=== PATIENT | male | born 1960 | race Caucasian/White ===

== ENCOUNTER 2019-09-27 11:27 | Observation (INO) | payer OTHER ==
--- NOTE | 2019-09-27 11:47 | ED ---
Syncope/Near Syncope - HPI Summary HPI Summary: This patient is a 59 y/o male presenting to [facility] for a syncopal episode today. Patient reports he was picking up a prescription at [facility] and upon walking up to the counter he syncopized. He notes the next thing he remembers is waking up on the ground hearing people speak. Patient states he felt lightheaded prior to passing out, but denies feeling chest pain or palpitations prior to syncope. After he woke up it took him a minute to realized he was on the floor. Patient does not know how long he was on the floor for. Patient notes he had head strike and currently has head pain. Denies neck pain. After waking up he denies feeling chest pain, palpitations, SOB. He denies hx of syncope. PMHx: HTN, dyslipidemia. Denies hx of DM, MT, stroke. Patient is not anticoagulated. Patients admits to occasional alcohol use, but denies tobacco and drug use. Home Medications Medication Instructions Recorded Confirmed Type Atorvastatin* [Lipitor*] 20 mg PO QPM 09/27/19 09/27/19 History Diltiazem XR EXTEND Releas(NF) 120 mg PO DAILY 09/27/19 09/27/19 History [Cartia XR (NF)] Multivitamin [Once Daily] 1 each PO DAILY 09/27/19 09/27/19 History [place]-3/Dha/Epa/Fish Oil [Fish Oil 1,000 mg PO DAILY 09/27/19 09/27/19 History 1,000 mg Softgel] Ramipril 10 mg PO QPM 09/27/19 09/27/19 History Ubidecarenone [Coq10] 100 mg PO DAILY 09/27/19 09/27/19 History - History Of Current Complaint Chief Complaint: EDSyncope Time Seen by Provider: 09/27/19 11:36 Hx Obtained From: Patient Onset/Duration: Sudden Onset Context: Witnessed, Loss Of Consciousness Associated Head Trauma: Yes Aggravating Factor(s): Nothing Alleviating Factor(s): Nothing Associated Signs And Symptoms: Lightheadedness, Pain - head - Allergies/Home Medications Allergies/Adverse Reactions: Allergies Allergy/AdvReac Type Severity Reaction Status Date / Time aspirin Allergy Rash Verified 09/27/19 11:33 Home Medications: Home Medications Atorvastatin* [Lipitor*] 20 mg PO QPM 09/27/19 [History Confirmed 09/27/19] Diltiazem XR EXTEND Releas(NF) [Cartia XR (NF)] 120 mg PO DAILY 09/27/19 [ History Confirmed 09/27/19] Multivitamin [Once Daily] 1 each PO DAILY 09/27/19 [History Confirmed 09/27/19] [place]-3/Dha/Epa/Fish Oil [Fish Oil 1,000 mg Softgel] 1,000 mg PO DAILY 09/27/19 [History Confirmed 09/27/19] Ramipril 10 mg PO QPM 09/27/19 [History Confirmed 09/27/19] Ubidecarenone [Coq10] 100 mg PO DAILY 09/27/19 [History Confirmed 09/27/19] PMH/Surg Hx/FS Hx/Imm Hx Endocrine/Hematology History: Denies: Hx Diabetes Cardiovascular History: Reports: Hx Hypercholesterolemia, Hx Hypertension Denies: Hx Myocardial Infarction Infectious Disease History: No Infectious Disease History: Denies: Traveled Outside the [place] in Last 30 Days - Family History Known Family History: Positive: Hypertension - Social History Alcohol Use: Occasionally Substance Use Type: Reports: None Smoking Status (MU): Never Smoked Tobacco Review of Systems Negative: Fever Negative: Palpitations, Chest Pain Negative: Shortness Of Breath Negative: Other - NEGATIVE: neck pain Neurological/Mental Status: Other - POSITIVE: lightheadedness Positive: Headache, Syncope All Other Systems Reviewed And Are Negative: Yes Physical Exam - Summary Physical Exam Summary: VITAL SIGNS: Reviewed. GENERAL: Patient is a well-developed and nourished male who is lying comfortable in the stretcher. Patient is not in any acute respiratory distress. HEAD AND FACE: Bump on the left occipital area. EYES: PERRLA, EOMI x 2, No injected conjunctiva, no nystagmus. EARS: Hearing grossly intact. Ear canals and tympanic membranes are within normal limits. MOUTH: Oropharynx within normal limits. NECK: Supple, trachea is midline, no adenopathy, no JVD, no carotid bruit, no c- spine tenderness, neck with full ROM. CHEST: Symmetric, no tenderness at palpation LUNGS: Clear to auscultation bilaterally. No wheezing or crackles. CVS: Regular rate and rhythm, S1 and S2 present, no murmurs or gallops appreciated. ABDOMEN: Soft, non-tender. No signs of distention. No rebound no guarding, and no masses palpated. Bowel sounds are normal. EXTREMITIES: FROM in all major joints, no edema, no cyanosis or clubbing. NEURO: Alert and oriented x 3. No acute neurological deficits. Speech is normal and follows commands. SKIN: Dry and warm GCS: 15 Triage Information Reviewed: Yes Vital Signs On Initial Exam: Initial Vitals Temp Pulse Resp BP Pulse Ox 98.4 F 77 19 145/96 92 09/27/19 11:28 09/27/19 11:28 09/27/19 11:28 09/27/19 11:28 09/27/19 11:28 Vital Signs Reviewed: Yes Procedures - Sedation Patient Received Moderate/Deep Sedation with Procedure: No Diagnostics - Vital Signs Vital Signs Temp Pulse Resp BP Pulse Ox 09/27/19 11:28 98.4 F 77 19 145/96 92 - Laboratory Result Diagrams: 09/27/19 12:01 09/27/19 12:01 Lab Statement: Any lab studies that have been ordered have been reviewed, and results considered in the medical decision making process. - Radiology Chest XR Radiology Interpretation Completed By: Radiologist Summary of Radiographic Findings: IMPRESSION: No radiographic evidence of acute cardiopulmonary disease. Dr. Jo has reviewed this report. - CT Brain CT CT Interpretation Completed By: Radiologist Summary of CT Findings: IMPRESSION: Normal CT of the brain. Dr. Jo has reviewed this report. - EKG 11:43 Cardiac Rate: NL - at 73 bpm EKG Rhythm: Sinus Rhythm EKG Comparison: Other - no prior for comparison. Summary of EKG Findings: EKG at 11:43 shows sinus rhythm at a rate of [address] elevations. This EKG was reviewed and interpreted by ED physician. Course/Dx Assessment/Plan: This patient is a 59 y/o male presenting to [facility] for a syncopal episode today. Patient reports he was picking up a prescription at [facility] and upon walking up to the counter he syncopized. He notes the next thing he remembers is waking up on the ground hearing people speak. Patient states he felt lightheaded prior to passing out, but denies feeling chest pain or palpitations prior to syncope. After he woke up it took him a minute to realized he was on the floor. Patient does not know how long he was on the floor for. Patient notes he had head strike and currently has head pain. Denies neck pain. After waking up he denies feeling chest pain, palpitations, SOB. He denies hx of syncope. PMHx: HTN, dyslipidemia. Denies hx of DM, MT, stroke. Patient is not anticoagulated. Patients admit to occasional alcohol use, but deny tobacco and drug use. Blood work without a significant abnormality except for creatinine 1.23, glucose 148, magnesium 1.7, total CPK is 232. Serum alcohol is 13. Head CT impression: No acute intracranial pathology. Chest x- ray impression: No acute cardiothoracic pathology. In the ED course the patient remained stable. I discussed my physical exam and test results with Dr. Bustillos from the hospitalist services and he agrees to admit the patient to his services. The patient is hemodynamically stable, alert and oriented x 3. - Diagnoses Differential Diagnosis/HQI/PQRI: Positive: Cerebral Vascular Accident, Coronary Artery Disease, Dysrhythmia, Hypoglycemia, Metabolic Reaction, Myocardial Infarction, Seizure, Transient Ischemic Attack, Vasovagal Episode Provider Diagnoses: Syncope - Physician Notifications Discussed Care of Patient With: Bernardino Terrell - hospitalist Time Discussed With Above Provider: 13:30 Instructed by Provider To: Admit As Inpatient Discharge ED - Sign-Out/Discharge Documenting (check all that apply): Patient Departure - Ad[facility] - Discharge Plan Condition: Stable Disposition: ADMITTED TO [facility] - Billing Disposition and Condition Condition: STABLE Disposition: Admitted to [facility] - Attestation Statements Document Initiated by Kennye: Yes Documenting Scribe: Leonie Calles Provider For Whom Cara is Documenting (Include Credential): Travis Jo MD Scribe Attestation: Leonie Sandoval, scribed for Travis Jo MD on 09/27/19 at 2133. Scribe Documentation Reviewed: Yes Provider Attestation: The documentation as recorded by the Leonie rodriguez accurately reflects the service I personally performed and the decisions made by me, Travis Jo MD Status of Scribe Document: Viewed
[2019-09-27 12:11] LABS: ABS Eosinophils 0.1 10^3/ul (0-0.6); ABS Lymphocytes 1.6 10^3/ul (1.0-4.8); ABS Monocytes 0.5 10^3/ul (0-0.8); ABS Neutrophils 5.8 10^3/ul (1.5-7.7); Eosinophil % 1.3 %; Hematocrit 47 % (42-52); Hemoglobin 16.2 g/dL (14.0-18.0); Lymphocyte % 19.7 %; Mean Corpuscular HGB Conc 35 g/dL (31-36); Mean Corpuscular Hemoglobin 34 pg (27-31); Mean Corpuscular Volume 97 fL (80-94); Mean Platelet Volume 8.3 fL (7.4-10.4); Platelet Count 192 10^3/uL (150-450); Red Blood Count 4.82 10^6 /uL (4.18-5.48); Red Cell Distribution Width 13 % (10-15)
[2019-09-27 12:27] LABS: Albumin 4.2 g/dL (3.2-5.2); Albumin/Globulin Ratio 1.6 (1-3); BUN/Creatinine Ratio 19.5 (8-20); Calcium 9.6 mg/dL (8.6-10.3); EGFR African American 72.4 (>60); EGFR Non-African American 59.8 (>60); Globulin 2.6 g/dL (2-4); Magnesium 1.7 mg/dL (1.9-2.7); Potassium 3.7 mmol/L (3.5-5.0); Total Bilirubin 0.5 mg/dL (0.2-1.0); Total Protein 6.8 g/dL (6.4-8.9)
[2019-09-27 12:29] LABS: Troponin I 0.01 ng/mL (<0.03)
[2019-09-27 13:09] LABS: TSH (Thyroid Stimulating Horm) 1.12 mcIU/mL (0.34-5.60)
[2019-09-27 13:44] LABS: Urine Appearance Clear; Urine Bilirubin Negative (Negative); Urine Blood Negative (Negative); Urine Color Yellow; Urine Glucose Negative (Negative); Urine Ketones Negative (Negative); Urine Nitrite Negative (Negative); Urine Protein Negative (Negative); Urine Specific Gravity 1.012 (1.010-1.030); Urine Urobilinogen Negative (Negative)
[2019-09-27 13:54] LABS: Urine Benzodiazepine Screen None Detected (None Detect); Urine Opiates Screen None Detected (None Detect)
[2019-09-27] MEDS ORDERED: Acetaminophen TAB* 325 MG PO PRN (13:57)
[2019-09-27] MEDS ORDERED: Ondansetron ODT TAB* 4 MG SL PRN (13:57)
[2019-09-27] MEDS ORDERED: Magnesium Sulfate IV* 3 GM in NS 0.9% 100 ML* 100 ML IVPB ONE (15:17)
[2019-09-27] MEDS: Heparin VIAL(*) 5000 UNITS/ML VIAL (FIVE THOUSAND) SUBCUT SCH ×2 (16:31→21:09)
[2019-09-27] MEDS ORDERED: Atorvastatin* 20 MG TAB PO SCH (18:00)
[2019-09-27] MEDS ORDERED: Ramipril CAP* 10 MG PO SCH (18:00)
--- NOTE | 2019-09-27 19:07 | HP ---
CC: Dr. Ellis * [facility] MEDICINE HISTORY AND PHYSICAL: DATE OF ADMISSION: 09/27/19 PRIMARY CARE PHYSICIAN: Dr. Ellis. ATTENDING PHYSICIAN: Bernardino Terrell MD * (dictation provided by Mayra Pastor NP). CHIEF COMPLAINT: Syncope. HISTORY OF PRESENT ILLNESS: Mr. Ma is a 59-year-old male with a past medical history of hypertension and hyperlipidemia who presents to the hospital today after an episode of syncope. Mr. Ma states he has been in his normal state of health with no complaints. He was feeling well yesterday. This morning, he got up, he had breakfast and then went for 1.5-hour hike. 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 The patient states that he did have a very brief prodrome of feeling lightheaded but then the next thing he remembers he found himself on the floor with people standing around him. He has no chest pain. No shortness of breath. No nausea, vomiting, diarrhea, or abdominal pain. At this point, he is feeling quite well. He does not have a known cardiac history, but has a very strong positive family history for cardiac problems. He does have a history of hypertension. He has had no known heart arrhythmias. 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 He has never had an echocardiogram. His EKG today shows a left bundle-branch block. He is not aware of the history of this and cannot recall the last time he had an EKG. In the emergency room, Mr. Ma had labs, which were essentially unremarkable. He had mildly low magnesium and a creatinine of 1.23, no known previous. He has no leukocytosis. He is not anemic. His vital signs are stable. He is not orthostatic by blood pressure criteria. He had a CT of the brain, which showed no abnormality. He had a chest x-ray that showed no abnormality. PAST MEDICAL HISTORY: 1. Hypertension. 2. Hyperlipidemia. 3. Obstructive sleep apnea with CPAP. MEDICATIONS: 1. Multivitamin 1 tab daily. 2. Fish oil tablet 1000 mg p.o. daily. 3. CoQ10 100 mg p.o. daily. 4. Atorvastatin 20 mg p.o. q.p.m. 5. Diltiazem XR 120 mg p.o. daily. 6. Ramipril 10 mg p.o. q.p.m. ALLERGIES: To ASPIRIN. FAMILY HISTORY: The patient reports that his mother had a CABG recently. His father had valvular problems and had a pacemaker and about 3 to 4 years ago. His brother has had 3 stents placed. His maternal uncle had heart troubles , his paternal uncle had heart troubles, and all 4 of his grandparents had heart troubles unspecified. SOCIAL HISTORY: No report of tobacco use and no report of significant alcohol use. The patient lives with his , who is the healthcare proxy. REVIEW OF SYSTEMS: A 14-point review of systems was completed with Mr. Ma and all those not mentioned above were negative. PHYSICAL EXAMINATION GENERAL: Mr. Ma is sitting in the bed with his at the bedside. He is in no acute distress. VITAL SIGNS: Temperature 98.3, pulse rate 74, respiratory rate 13, O2 saturation 94% on room air, and blood pressure 163/94. LUNGS: Clear to auscultation bilaterally with no accessory muscle use and good aeration. HEART: S1, S2. The patient has hint of a systolic murmur at the sternal border but is difficult to auscultate due to the patient's body habitus. ABDOMEN: Soft, nontender with bowel sounds positive x4. EXTREMITIES: No cyanosis or edema. NEURO: He is alert. He is oriented x3. He moves all extremities equally. There is no facial asymmetry or focal weakness. Extraocular movements are intact. SKIN: Intact. DIAGNOSTIC STUDIES/LAB DATA: WBC 8.0, hemoglobin 16.2, hematocrit 47, and platelet count 192. Sodium 137, potassium 2.7, chloride 107, serum bicarbonate 22, BUN 24, creatinine 1.23, glucose 148, lactic acid 1.0, magnesium 1.7. Troponin 0.01. TSH 1.12. Urine shows no evidence of infection. The serum alcohol screen shows alcohol level of 13, and urine is positive for cannabis. CT brain shows no acute abnormality. Chest x-ray shows no abnormality. EKG shows a sinus rhythm with a left bundle-branch block. ASSESSMENT: Mr. Ma is a 59-year-old male with past medical history of hypertension, hyperlipidemia, and obstructive sleep apnea, who presents to the hospital today after syncopal episode. Our plans are for observation in the hospital for the followin. Syncope: Certainly, the greatest concern is for cardiac etiology. The patient has had no evidence of arrhythmia on telemetry. He does have left bundle-branch block, which was unknown to him. His troponin is negative. Our plans will be for continuous telemetry monitoring while in the hospital. He will have a transthoracic echocardiogram and our hope is that he can have that obtained tomorrow. I am particularly interested in the echo given his left bundle-branch block and his apparent murmur on exam today. He certainly has a positive family history for coronary artery disease and structural heart abnormalities and he is at high risk. Given if this workup here while in the hospital is negative, I encourage him strongly to follow up outpatient with Cardiology for continued evaluation. The patient's is concerned that perhaps his syncope was related to hypoglycemia as though he ate breakfast he has been avoiding carbohydrates. I also note that his alcohol screen was slightly positive and that his cannabis screen was positive perhaps this was a contributing factor as well. 2. Hypertension. Plan to continue home medications. 3. Obstructive sleep apnea. Plan to continue CPAP. 4. DVT prophylaxis with heparin subcu. 5. Code status is full code. TIME SPENT: Approximately 60 minutes was spent on the admission of this patient , more than half the time spent with the patient at the bedside reviewing the events leading up to this hospitalization, performing the physical examination, and reviewing my plan of care. MAYRA PASTOR NP [id number]/[facility] #: [id number] BOLIVAR
[2019-09-28] MEDS: Heparin VIAL(*) 5000 UNITS/ML VIAL (FIVE THOUSAND) SUBCUT SCH (05:53)
[2019-09-28 07:58] LABS: BUN/Creatinine Ratio 18.3 (8-20); Calcium 9.4 mg/dL (8.6-10.3); EGFR African American 87.9 (>60); EGFR Non-African American 72.6 (>60); Magnesium 2.1 mg/dL (1.9-2.7); Potassium 4.2 mmol/L (3.5-5.0)
[2019-09-28] MEDS ORDERED: Diltiazem CD CAP* 120 MG PO SCH (09:00)
--- NOTE | 2019-09-28 12:05 | ECHO ---
*[facility]* [place] [address] Fax #: [phone] Transthoracic Echocardiogram Patient: Lukas Ma : 1960 Study Date: 09/28/2019 Age: 59 Gender: M HR: 70 bpm Height: 72 in /182.9 cm BSA: 2.38 m^2 Weight: 259.5 lb /117.9 kg BMI: 35.3 kg/m^2 *[employer] Collection System Operator: Jennifer Collier *Referring Physician: * Mayra PastorReading Physician: * Bobo Cline MD Indications: Syncope. History: Risk factors: Dyslipidemia. Family history is significant for coronary artery disease. Conclusions Summary: - Left ventricle: The cavity size is normal. Wall thickness is mildly increased. Systolic function is normal. The estimated ejection fraction is 55-60%. No clear regional wall motion abnormality identified. Doppler parameters are consistent with abnormal left ventricular relaxation (grade 1 diastolic dysfunction). - Left atrium: The atrium is mildly dilated. - Right atrium: The atrium is mildly dilated. - Functionally benign heart valves. - There is no prior echocardiogram available to compare with at this time. Study data: Transthoracic echocardiogram. Procedure: Transthoracic echocardiography was performed. Image quality was adequate. Complete 2D, spectral Doppler, and color flow Doppler. Location: Bedside. Patient status: Inpatient. Patient room number: 445-01. Rhythm: Normal sinus rhythm. Findings Left ventricle: The cavity size is normal. Wall thickness is mildly increased. Systolic function is normal. The estimated ejection fraction is 55-60%. No clear regional wall motion abnormality identified. Doppler parameters are consistent with abnormal left ventricular relaxation (grade 1 diastolic dysfunction). Right ventricle: The cavity size is normal. Systolic function is normal. Ventricular septum: The ventricular septum is normal. The interventricular septum appears dyssynchronous. Left atrium: The atrium is mildly dilated. Right atrium: The atrium is mildly dilated. Mitral valve: The valve is structurally normal. There is trace regurgitation. Aortic valve: The valve is structurally normal. The valve is trileaflet. Cusp separation is normal. Transvalvular velocity is within the normal range. There is no evidence of stenosis. There is no significant regurgitation. Tricuspid valve: The valve is structurally normal. There is no evidence of stenosis. There is trace regurgitation. Pulmonic valve: The valve is structurally normal. There is no evidence of stenosis. There is no significant regurgitation. Aorta: The aortic root appears normal. The aortic arch appears normal. Pericardium: There is no significant pericardial effusion. Pulmonary arteries: Systolic pressure can not be accurately estimated. Systemic veins: Inferior vena cava: Not well visualized. Pulmonary veins: The Pulmonary veins appear normal. Measurements Left ventricle Value Ref Aortic valve Value Ref JORGE, LAX 5.5 cm 4.2 - 5.8 Peak v, S 1.9 m/sec ---- ESD, LAX (H) 4.1 cm 2.5 - 4.0 VTI, S 30.8 cm ---- FS, LAX 27 % 25 - 43 Mean grad, S 7.0 mm Hg ---- PW, ED, LAX (H) 1.4 cm 0.6 - 1.0 Peak grad, S 14.0 mm Hg ---- E', lat alex, TDI (L) 6.0 cm/sec >=10.0 RADHA, VTI 2.13 cm^2 ---- E/e', lat alex, 13 RADHA, Vmax 1.98 cm^2 ---- TDI Mitral valve Value Ref LVOT Value Ref Peak E 0.8 m/sec ---- Diam, S 2.00 cm Peak A 0.83 m/sec ---- Area 3.1 cm^2 Decel time 166 ms ---- Peak wayne, S 1.2 m/sec Peak grad, D 2.6 mm Hg ---- Peak grad, S 6 mm Hg Peak E/A ratio 1 ---- Mean grad, S 3 mm Hg SV 66 ml Pulmonic valve Value Ref Peak v, S 1.34 m/sec ---- Ventricular septum Value Ref Peak grad, S 7.0 mm Hg ---- IVS, ED (H) 1.3 cm 0.6 - 1.0 Aortic root Value Ref Right ventricle Value Ref Root diam 3.6 cm <4.4 JORGE, LAX 3.5 cm Ascending aorta Value Ref Left atrium Value Ref AAo AP diam, S 3.7 cm ---- AP dim, ES 3.50 cm 3.00 - 4.00 Aortic arch Value Ref ML dim, A4C 5.5 cm Arch diam 2.4 cm ---- SI dim, A4C 5.4 cm Vol/bsa, ES, 1-p (H) 39 ml/m^2 12 - 37 Decending aorta Value Ref A4C Laquita peak wayne 0.93 m/sec ---- Right atrium Value Ref SI dim, ES (H) 5.7 cm 3.4 - 5.3 ML dim, ES, A4C 3.0 cm 2.6 - 4.4 SI dim, ES, A4C (H) 5.7 cm 3.4 - 5.3 Legend: (L) and (H) jessica values outside specified reference range. Prepared and electronically signed by Bobo Cline MD 09/28/2019 12:05
[2019-09-28 12:43] VITALS: BP 137/77
--- NOTE | 2019-09-28 17:55 | DS ---
CC: Dr. Kevin Ellis, [place] * DISCHARGE SUMMARY: DATE OF ADMISSION: 09/27/19 DATE OF DISCHARGE: 09/28/19 PRIMARY DIAGNOSIS: Syncope. SECONDARY DIAGNOSES: 1. Left bundle-branch block. 2. Hyperlipidemia. 3. Hypertension. 4. Hypomagnesemia. 5. Dehydration with prerenal azotemia, resolved. 6. Obstructive sleep apnea. 7. Marijuana positive urine screen. 8. Alcohol use. MEDICATIONS ON DISCHARGE: 1. Atorvastatin 20 mg p.o. q.p.m. 2. Diltiazem XR 120 mg p.o. daily. 3. Multivitamin 1 tab p.o. daily. 4. Fish oil 1000 mg p.o. daily. 5. Ramipril 10 mg p.o. q.p.m. 6. Coenzyme Q10 100 mg p.o. daily. CONSULTANTS: None. PROCEDURES: None. COMPLICATIONS: None. HOSPITAL COURSE: The patient is a 59-year-old man who presented to the emergency department by ambulance after losing consciousness in [facility] at the pharmacy. He had some prodrome of lightheadedness. His head struck a metal pole in the fall and he was said to have some shaking movements after that. The patient was admitted for cardiac monitoring. No significant arrhythmias were found, although he did have a left bundle-branch block on EKG that was unknown to the patient and may be new. The patient's troponin was 0.01. His blood counts were essentially normal. Chemistries were normal except for creatinine of 1.12 on admission that fell to 1.04 on the day of discharge after some hydration. His magnesium is 1.7 on admission and 2.1 after supplementation in the ER and repeat. His TSH was normal. His urinalysis was negative. His urine drug screen showed negative other than positive for cannabinoids. His serum alcohol level was 13 with a time of noon whenever it was sampled. The patient had an echocardiogram performed on the day of discharge because of the syncope and audible 1/6 heart murmur at right upper sternal border. Echocardiogram showed grade 1 diastolic dysfunction, but no valve abnormalities , no regional wall motion abnormalities. Normal ejection fraction. The patient's syncope did not recur and the differential remains that he could have arrhythmia that is infrequent. He could have seizure. He was advised to have outpatient followup with primary care, and if there are recurrent concerns , he should have a longer term cardiac event monitor or EEG. We did not see an indication for cardiac stress testing, may be that could be performed as an outpatient as well. DISPOSITION: To home. DIET: Low salt, low fat. ACTIVITY: As tolerated. STATUS: Observation. CONDITION: Stable. FOLLOWUP: Follow up with primary care within 1 week. [id number]/[facility] #: [id number] BOLIVAR
== END 2019-09-28 13:15 | disposition home or self-care (01) ==
LOC: ED 11:27 → MEDTELE 13:56
PROVIDERS: ADMIT Internal Medicine; ATTEND Internal Medicine
DX: R55 Syncope and collapse (principal); I44.7 Left bundle-branch block, unspecified; E78.5 Hyperlipidemia, unspecified; I10 Essential (primary) hypertension; E83.42 Hypomagnesemia; E86.0 Dehydration; E78.00 Pure hypercholesterolemia, unspecified; G47.33 Obstructive sleep apnea (adult) (pediatric); R94.31 Abnormal electrocardiogram [ECG] [EKG]; F12.90 Cannabis use, unspecified, uncomplicated; Z72.89 Other problems related to lifestyle; Z79.899 Other long term (current) drug therapy; Z88.8 Allergy status to other drugs, medicaments and biological substances; R42 Dizziness and giddiness
CPT/HCPCS: 36415; 70450; 71046; 80048; 80053; 80307; 80320; 81003; 82140; 82550; 83605; 83735; 83880; 84443; 84484; 85025; 93005; 93306; 96365; 96366; 99284; A9270-GY; G0378; G0480; J1644; J3475